=== PATIENT | male | born 1950 | race Caucasian/White ===

== ENCOUNTER 2024-03-05 08:02 | Outpatient (CLI) | payer MEDICARE, OTHER, SELFPAY ==
--- NOTE | 2024-03-05 | PATH_ITS ---
[facility] Accession Number: [id number] No. of containers..01 Tissue . 01 Material submitted: . back - UNDER SKIN LOWER BACK AREA/ R PARASPINAL INTRAMUSCULAR MASS . 01 Clinical history: . MASS . 01 Diagnosis: SOFT TISSUE, UNDER SKIN LOWER BACK AREA/RIGHT PARASPINAL INTRAMUSCULAR REGION, BIOPSY: Prominent vessels, associated chronic lymphoplasmacytic inflammation and mild fibrosis. See comment. MRV 03/14/2024 1521 Local . 01 Comment: The biopsy is composed of multiple fragments of unremarkable skeletal muscle. There is one core which has changes most suggestive of hemangioma with adjacent adipose tissue, however, it does not appear to be located within muscle. The small material and lack of overlying epidermis limits evaluation and precludes a definite diagnosis. The changes could be a part of a larger lesion, and may not be financial service representative of the lesion as a whole. Another consideration could be that the lesion is deeper than what was sampled in this biopsy. In addition, these findings may also represent secondary changes associated with panniculitis, or in the vicinity of trauma, or possibly adjacent to a mass. Clinical correlation is recommended for a definitive diagnosis. . This case is also reviewed by Drs. Gianluca Troncoso and Kaitlyn Hercules, (dermatopathologists) who agree with the given interpretation. . 01 Electronically signed: . Naomy Iyer MD, Pathologist NPI- [id number] . 01 Gross description: . UNDER SKIN LOWER BACK AREA/ R PARASPINAL INTRAMUSCULAR MASS: Received in formalin are multiple fragment(s) of terry, soft tissue measuring 0.1 x 0.1 x 0.1 cm to 0.7 x 0.1 x 0.1 cm submitted entirely in 1 cassette(s) /SHAYLA 03/06/2024 0108 Local . 01 Microscopic: . ALLEN, SOX-10 and HHV8 immunostains are negative. Controls stain appropriately. . * This test was developed and its performance characteristics determined by [facility]. It has not been cleared or approved by the [place]. Food and Drug Administration. The FDA has determined that such clearance or approval is not necessary. This test is used for clinical purposes. It should not be regarded as investigational or for research. . 01 Pathologist provided ICD-10: D18.09 . 01 CPT . 923494, [id number] Specimen Comment: A courtesy copy of this report has been sent to [phone] Performed at: [address] [address], [place], [place] [id number] MD Keshawn Amaya MD Phone: [phone]
--- NOTE | 2024-03-05 | DI.CT.S_ITS ---
PROCEDURE: CT BIOPSY MUSCLE Sedation analgesia for 15 minutes. INDICATIONS: Localized swelling, mass and lump, unspecified TECHNIQUE: The indications, alternatives, benefits, risks, and possible complications of the procedure were communicated to the patient. Informed written consent from the patient was obtained and placed in the chart. Continuous EKG and hemodynamic monitoring was started by trained personnel. The patient was brought to the CT suite and command and control systems integrator spiral CT imaging was performed with localization grid. The appropriate site for percutaneous access to the biopsy target was marked, was prepped and draped sterilely, and was infused with local anaesthesia. Under CT guidance, a core biopsy trocar and needle set was advanced to the biopsy target, and specimen(s) were obtained. The trocar and needle were then removed, and the patient was sent for post-procedure monitoring. COMPARISON: Outside Facility, RG, MRI L-SPINE W/WO CONTRAST, 02/09/2024, 16:32. FINDINGS: Biopsy site: Right paraspinal intramuscular mass measuring 1.6 cm, (). Needle: 18 gauge biopsy needle with introducer trocar. Number of passes: 7. A few samples yielding scant tissue. Medications: 1% lidocaine for local anaesthesia. IV Fentanyl and Versed for conscious sedation for 15 minutes (see nursing record). Complications: Minimal bleeding. Post procedural CT demonstrates no hematoma. IMPRESSION: Successful CT-guided biopsy of right paraspinal intramuscular mass. Dictated by: Tres Okeefe M.D. on 03/05/2024 at 10:58 Approved by: Tres Okeefe M.D. on 03/05/2024 at 11:00
[2024-03-05 08:41] VITALS: BMI 35.9
[2024-03-05 08:47] LABS: Hematocrit 45.5 % (41-53); Platelet Count 292 X10^3/uL (150-400)
[2024-03-05 08:48] VITALS: BP 154/88; PULSE 70; RESP 18; TEMP 36.4; O2SAT 95
[2024-03-05 09:30] VITALS: BP 139/69; PULSE 61; RESP 16; O2SAT 97
[2024-03-05 09:34] VITALS: BP 131/71; PULSE 60; RESP 18; O2SAT 97
[2024-03-05] MEDS: fentaNYL 100 MCG/2 ML INJ IV (09:40)
[2024-03-05] MEDS: MIDAZOLAM 2 MG/2 ML VIAL IV (09:43)
[2024-03-05 09:44] VITALS: BP 117/59; PULSE 60; RESP 16; O2SAT 97
[2024-03-05 09:50] VITALS: BP 131/63; PULSE 63; RESP 18; O2SAT 97
--- NOTE | 2024-03-05 09:52 | SUR.PREOP ---
I, Dr. Okeefe, have been asked to biopsy a right paraspinal intramuscular mass at the level of the kidneys. Mass measures about [address] guided biopsy with moderate sedation. Patient denies any recent illnesses, heart condition, or medications. Report recent fall and broken toe. No fevers or chills. Heart RRR, no murmur. Lung are clear. Abdomen is soft. Mouth is clear. No loose teeth reported. Mallipati 2. Reports difficulty recovering from general anesthesia. Moderate sedation is my plan.
[2024-03-05 10:20] VITALS: BP 121/69; PULSE 60; RESP 18; TEMP 37.2; O2SAT 93
== END 2024-03-05 10:59 | disposition home or self-care (01) ==
PROVIDERS: Radiology Diagnostic Radiology; PCP Internal Medicine; Referring Provider Internal Medicine; Visit Provider Internal Medicine
PROC: BB24ZZZ Computerized Tomography (CT Scan) of Bilateral Lungs (ICD-10-PCS; CPT 32408; principal; 2024-03-05 09:30)
DX: R22.9 Localized swelling, mass and lump, unspecified (principal)
CPT/HCPCS: 20206; 36415; 77012; 85014; 85049; 85610; J2250; J3010